=== PATIENT | female | born 1995 | race Hispanic/Latino ===

== ENCOUNTER 2017-11-28 11:40 | Emergency (ER) | payer MEDICAID ==
[2017-11-28 12:13] LABS: APPEARANCE,URINE Clear (CLEAR); BILIRUBIN,URINE Negative (NEGATIVE); COLOR,URINE Yellow (YELLOW); GLUCOSE, URINE (UA) Negative (NEGATIVE); KETONES,URINE Negative (NEGATIVE); LEUKOCYTE ESTERASE ,URINE Negative (NEGATIVE); NITRATE,URINE Negative (NEGATIVE); OCCULT BLOOD,URINE Negative (NEGATIVE); PH,URINE 6.5 (5.0-8.0); PROTEIN,URINE Negative (NEGATIVE)
[2017-11-28 12:17] LABS: HCG,QUAL RESULT NEGATIVE (NEGATIVE)
[2017-11-28] MEDS ORDERED: ORPHENADRINE CITRATE 30 MG/ML ML ONE (12:20)
== END 2017-11-28 12:30 | disposition home or self-care (01) ==
LOC: EDH 11:40
DX: S29.012A Strain of muscle and tendon of back wall of thorax, initial encounter (principal); M62.838 Other muscle spasm; X50.0XXA Overexertion from strenuous movement or load, initial encounter; Y93.89 Activity, other specified; Y92.89 Other specified places as the place of occurrence of the external cause; Y99.8 Other external cause status
CPT/HCPCS: 81003; 81025; 96372; 99284; J2360

== ENCOUNTER 2017-12-06 08:01 | Emergency (ER) | payer MEDICAID ==
[2017-12-06] MEDS ORDERED: KETOROLAC TROMETHAMINE 30MG/ML ONE (08:43)
[2017-12-06] MEDS ORDERED: DIAZEPAM 5 MG TABLET ONE (08:43)
== END 2017-12-06 09:25 | disposition home or self-care (01) ==
LOC: EDH 08:01
DX: M54.5 Low back pain (principal)
CPT/HCPCS: 96372; 99283; J1885

== ENCOUNTER 2018-11-09 17:49 | Emergency (ER) | payer MEDICAID ==
[2018-11-09 18:30] LABS: APPEARANCE,URINE Cloudy (CLEAR); BILIRUBIN,URINE Negative (NEGATIVE); COLOR,URINE Yellow (YELLOW); GLUCOSE, URINE (UA) Negative (NEGATIVE); KETONES,URINE Negative (NEGATIVE); LEUKOCYTE ESTERASE ,URINE Negative (NEGATIVE); NITRATE,URINE Negative (NEGATIVE); OCCULT BLOOD,URINE Negative (NEGATIVE); PH,URINE 6.5 (5.0-8.0); PROTEIN,URINE Negative (NEGATIVE); UROBILINOGEN,URINE 0.2 mg/dL (0.2-1.0)
[2018-11-09 18:42] LABS: BACTERIA,URINE Few /HPF (None Seen); RBC,URINE 0-1 /HPF (0-1); WBC,URINE 0-1 /HPF (0-1)
[2018-11-09 18:43] LABS: AMORPHOUS SEDIMENT,UR Few /LPF (None Seen); SQUAMOUS EPITHELIAL CELL,UR Few /HPF (0-2)
[2018-11-09 18:43] LABS: CREATININE 0.6 mg/dL (0.5-1.5); POTASSIUM 3.3 mmol/L (3.5-5.1)
[2018-11-09 18:58] LABS: BASOPHILS % (AUTO) 0.3 % (0.0-5.0); HEMATOCRIT 35.5 % (36-48); LYMPHOCYTES % (AUTO) 25.3 % (21.0-51.0); MEAN CORPUSCULAR HEMOGLOBIN 28.8 pg (27.0-33.0); MEAN CORPUSCULAR HGB CONC 34.5 g/dL (32.0-36.0); MEAN CORPUSCULAR VOLUME 83.5 fL (79-99); MONOCYTES % (AUTO) 4.1 % (3.0-13.0); NEUTROPHILS % (AUTO) 69.3 % (40.0-77.0); PLATELET COUNT (AUTO) 246 K/uL (130-400); RED BLOOD CELL COUNT(AUTO) 4.25 MIL/uL (4.00-5.50); WHITE BLOOD COUNT (AUTO) 13.9 K/uL (4.8-10.8)
== END 2018-11-09 19:28 | disposition home or self-care (01) ==
LOC: EDH 17:49
DX: O26.891 Other specified pregnancy related conditions, first trimester (principal); R45.0 Nervousness; R06.02 Shortness of breath; Z3A.12 12 weeks gestation of pregnancy; Z98.890 Other specified postprocedural states
CPT/HCPCS: 36415; 80048; 81001; 85025

== ENCOUNTER 2019-02-14 19:34 | Observation (INO) | payer MEDICAID ==
[~2019-02-14] VITALS: Ht 149.9 cm; Wt 93.9 kg
[2019-02-14 20:07] LABS: BILIRUBIN,URINE Negative (NEGATIVE); COLOR,URINE Yellow (YELLOW); GLUCOSE, URINE (UA) Negative (NEGATIVE); KETONES,URINE Negative (NEGATIVE); LEUKOCYTE ESTERASE ,URINE Negative (NEGATIVE); NITRATE,URINE Negative (NEGATIVE); OCCULT BLOOD,URINE Negative (NEGATIVE); PH,URINE 7.5 (5.0-8.0); PROTEIN,URINE Negative (NEGATIVE)
[2019-02-14 20:08] LABS: APPEARANCE,URINE CLOUDY (CLEAR)
[2019-02-14 20:12] LABS: AMORPHOUS SEDIMENT,UR Moderate /LPF (None Seen); BACTERIA,URINE Rare /HPF (None Seen); RBC,URINE 0-1 /HPF (0-1); WBC,URINE 0-1 /HPF (0-1)
[2019-02-14 20:13] LABS: SQUAMOUS EPITHELIAL CELL,UR Rare /HPF (0-2)
[2019-02-14 20:14] LABS: AMPHET/METH SCREEN,URINE NEGATIVE (NEGATIVE); BARBITURATE SCREEN, URINE NEGATIVE (NEGATIVE); BENZODIAZEPINES SCREEN,URINE NEGATIVE (NEGATIVE); CANNABINOID SCREEN,URINE NEGATIVE (NEGATIVE); COCAINE SCREEN,URINE NEGATIVE (NEGATIVE); OPIATE SCREEN,URINE NEGATIVE (NEGATIVE); PHENCYCLIDINE SCREEN,URINE NEGATIVE (NEGATIVE)
== END 2019-02-14 23:15 | disposition home or self-care (01) ==
LOC: EDH 19:34 → LDH 19:41
PROVIDERS: ADMIT Obstetrics & Gynecology; ATTEND Obstetrics & Gynecology
DX: O26.892 Other specified pregnancy related conditions, second trimester (principal); M54.5 Low back pain; Z3A.26 26 weeks gestation of pregnancy
CPT/HCPCS: 59025; 76805; 76819; 80305; 81001; 99284; G0378 ×4

== ENCOUNTER 2019-03-26 10:50 | Observation (INO) | payer MEDICAID ==
[~2019-03-26] VITALS: Ht 149.9 cm; Wt 94.8 kg
[2019-03-26 12:11] LABS: APPEARANCE,URINE CLEAR (CLEAR); BILIRUBIN,URINE NEGATIVE (NEGATIVE); COLOR,URINE YELLOW (YELLOW); GLUCOSE, URINE (UA) NEGATIVE (NEGATIVE); KETONES,URINE NEGATIVE (NEGATIVE); LEUKOCYTE ESTERASE ,URINE NEGATIVE (NEGATIVE); NITRATE,URINE NEGATIVE (NEGATIVE); OCCULT BLOOD,URINE NEGATIVE (NEGATIVE); PROTEIN,URINE NEGATIVE (NEGATIVE); UROBILINOGEN,URINE 0.2 mg/dL (0.2-1.0)
== END 2019-03-26 12:15 | disposition home or self-care (01) ==
LOC: EDH 10:50 → LDH 11:07
PROVIDERS: ADMIT Obstetrics & Gynecology; ATTEND Obstetrics & Gynecology
DX: O26.893 Other specified pregnancy related conditions, third trimester (principal); R10.9 Unspecified abdominal pain; Z3A.31 31 weeks gestation of pregnancy
CPT/HCPCS: 81003; 99284; G0378

== ENCOUNTER 2019-08-05 13:03 | Emergency (ER) | payer MEDICAID, OTHER ==
[2019-08-05] MEDS ORDERED: ACETAMINOPHEN EXTRA STRENGTH 500 MG TABLET ONE (13:13)
[2019-08-05 13:19] LABS: RAPID GROUP A STREP NEGATIVE (NEGATIVE)
== END 2019-08-05 14:19 | disposition home or self-care (01) ==
LOC: EDH 13:03
DX: J10.1 Influenza due to other identified influenza virus with other respiratory manifestations (principal); Z98.890 Other specified postprocedural states
CPT/HCPCS: 87804; 87880

== ENCOUNTER 2022-05-31 05:21 | Emergency (ER) | payer MEDICAID ==
[~2022-05-31] VITALS: Ht 149.9 cm; Wt 99.8 kg
[2022-05-31] MEDS ORDERED: BENZ-39 PO (06:58)
[2022-05-31] MEDS ORDERED: IBUP-2070 PO (06:58)
[2022-05-31] MEDS ORDERED: ALBU90AE2 IH (06:58)
[2022-05-31] MEDS ORDERED: KETOROLAC 60 MG VIAL (30MG/ML) IM ONE (07:00)
[2022-05-31] MEDS ORDERED: BENZONATATE 100 MG CAPSULE PO ONE (07:00)
[2022-05-31] MEDS ORDERED: IPRATROPIUM/ALBUTEROL SULFATE 3 ML SOLUTION IH ONE (07:00)
[2022-05-31] MEDS ORDERED: DEXAMETHASONE SOD PHOSPHATE 4 MG/ML 1ML VIAL IM ONE (07:00)
[2022-05-31 07:22] VITALS: BP 122/64
== END 2022-05-31 07:30 | disposition home or self-care (01) ==
LOC: EDH 05:21
DX: J06.9 Acute upper respiratory infection, unspecified (principal); J45.909 Unspecified asthma, uncomplicated; Z20.822 Contact with and (suspected) exposure to COVID-19; Z98.890 Other specified postprocedural states
CPT/HCPCS: 99284; 87635; 87880; 87804 ×2; 96372 ×2; 94640; J1100; C9803; J1885

== ENCOUNTER 2022-12-04 13:13 | Emergency (ER) | payer MEDICAID ==
[~2022-12-04] VITALS: Ht 149.9 cm; Wt 99.8 kg
[~2022-12-04 13:13] MED LIST: ALBU90AE2 IH; BENZ-39 PO; IBUP-2070 PO
[2022-12-04 13:54] LABS: BASOPHILS % (AUTO) 0.3 % (0.0-5.0); EOSINOPHILS % (AUTO) 1.4 % (0.0-8.0); LYMPHOCYTES % (AUTO) 21.2 % (21.0-51.0); MEAN CORPUSCULAR HEMOGLOBIN 27.1 pg (27.0-33.0); MEAN CORPUSCULAR HGB CONC 33.2 g/dL (32.0-36.0); MEAN CORPUSCULAR VOLUME 81.5 fL (79-99); MONOCYTES % (AUTO) 3.5 % (3.0-13.0); NEUTROPHILS % (AUTO) 73.2 % (40.0-77.0); PLATELET COUNT (AUTO) 258 K/uL (130-400); RED BLOOD CELL COUNT(AUTO) 4.17 MIL/uL (4.00-5.50); RED CELL DISTRIBUTION WIDTH 13.5 % (11.0-15.5); WHITE BLOOD COUNT (AUTO) 13.1 K/uL (4.8-10.8)
[2022-12-04 14:09] LABS: CREATININE 0.6 mg/dL (0.5-1.5); POTASSIUM 3.9 mmol/L (3.5-5.1)
[2022-12-04 14:14] LABS: ALBUMIN 2.8 g/dL (3.5-5.0); TOTAL PROTEIN, SERUM 7.5 g/dL (6.0-8.3)
[2022-12-04 14:15] LABS: APPEARANCE,URINE CLEAR (CLEAR); BILIRUBIN,URINE NEGATIVE (NEGATIVE); COLOR,URINE YELLOW (YELLOW); GLUCOSE, URINE (UA) NEGATIVE (NEGATIVE); KETONES,URINE NEGATIVE (NEGATIVE); LEUKOCYTE ESTERASE ,URINE 25 Leu/uL (NEGATIVE); NITRATE,URINE NEGATIVE (NEGATIVE); OCCULT BLOOD,URINE NEGATIVE (NEGATIVE); PH,URINE 6.5 (5.0-8.0); PROTEIN,URINE 20 mg/dL (NEGATIVE); UROBILINOGEN,URINE 0.2 mg/dL (0.2-1.0)
[2022-12-04 14:32] LABS: BACTERIA,URINE RARE /HPF (None Seen); MUCUS,URINE RARE LPF (None Seen); RBC,URINE 0-1 /HPF (0-1); SQUAMOUS EPITHELIAL CELL,UR FEW /HPF (0-2); WBC,URINE 0-1 /HPF (0-1)
[2022-12-04 16:53] VITALS: BP 126/68
== END 2022-12-04 17:39 | disposition home or self-care (01) ==
LOC: EDH 13:13
DX: O26.891 Other specified pregnancy related conditions, first trimester (principal); R10.30 Lower abdominal pain, unspecified; Z3A.19 19 weeks gestation of pregnancy; Z79.899 Other long term (current) drug therapy; Z98.890 Other specified postprocedural states
CPT/HCPCS: 36415; 76805; 80053; 81001; 83690; 85025